=== PATIENT | female | born 1995 | race Caucasian/White ===

== ENCOUNTER 2016-09-11 12:45 | Emergency (ER) | payer OTHER ==
[~2016-09-11] VITALS: Ht 165.1 cm; Wt 68.0 kg
--- NOTE | 2016-09-11 12:52 | NUR ---
pt is in room #1b. dr Sol evaluated the pt.
[2016-09-11] MEDS ORDERED: IV NORMAL SALINE 1000 ML BAG IV ONE (13:45)
[2016-09-11] MEDS ORDERED: LORAZEPAM 2 MG/1 ML VIAL IV ONE (13:45)
[2016-09-11] MEDS ORDERED: LORAZEPAM 2 MG/1 ML VIAL ONE (14:01)
--- NOTE | 2016-09-11 15:41 | NUR ---
PT WAS D/C TO HOME. D/C INSTRUCTIONS GIVEN TO THE PT.
[2016-09-11 15:44] VITALS: BP 125/77
[2016-09-15 20:07] LABS: *GC NAA Negative (Negative); *TRIC.VAG. NAA Negative (Negative)
== END 2016-09-11 15:44 | disposition home or self-care (01) ==
LOC: ER 12:45
DX: F13.239 Sedative, hypnotic or anxiolytic dependence with withdrawal, unspecified (principal); F32.9 Major depressive disorder, single episode, unspecified; J45.909 Unspecified asthma, uncomplicated; F41.9 Anxiety disorder, unspecified; Z88.1 Allergy status to other antibiotic agents
CPT/HCPCS: 86592; 86803; 87491; 87806; 93005; 96361; 96374; 99285; A4663; J2060; J7030; 36415

== ENCOUNTER 2018-08-13 21:41 | Emergency (ER) | payer BC, OTHER ==
[~2018-08-13] VITALS: Ht 165.1 cm; Wt 74.8 kg
--- NOTE | 2018-08-13 22:00 | NUR ---
Pt walks into ER with c/o cough + nasal congestion x 1 day. No acute distress noted.
--- NOTE | 2018-08-13 22:13 | NUR ---
Patient discharged to home in stable conditon. Written and verbal after care instructions given. Patient verbalizes understanding of instructions.
[2018-08-13 22:16] VITALS: BP 110/71
== END 2018-08-13 22:17 | disposition home or self-care (01) ==
LOC: ER 21:41
DX: J02.9 Acute pharyngitis, unspecified (principal); J45.909 Unspecified asthma, uncomplicated; Z88.2 Allergy status to sulfonamides; Z88.8 Allergy status to other drugs, medicaments and biological substances
CPT/HCPCS: A4663

== ENCOUNTER 2018-09-13 14:09 | Emergency (ER) | payer BC, OTHER ==
[~2018-09-13] VITALS: Ht 162.6 cm; Wt 74.8 kg
[2018-09-13 14:42] LABS: *URINE HCG, QUAL NEGATIVE (NEGATIVE)
--- NOTE | 2018-09-13 15:20 | NUR ---
Patient is resting comfortably on gurney while using her personal electronic device, NAD.
[2018-09-13 15:37] LABS: BASOPHILS % (AUTO) 0.2 % (0.0-2.0); CREATININE 0.6 mg/dL (0.6-1.3); EOSINOPHILS % (AUTO) 0.3 % (0.0-7.0); HEMATOCRIT 39.2 % (31.2-41.9); HEMOGLOBIN 13.2 g/dL (10.9-14.3); LYMPHOCYTES # (AUTO) 0.9 K/uL (20.0-40.0); LYMPHOCYTES % (AUTO) 11.6 % (20.5-51.5); MEAN CORPUSCULAR HEMOGLOBIN 30.5 uug (24.7-32.8); MEAN CORPUSCULAR HGB CONC 34 g/dL (32.3-35.6); MEAN CORPUSCULAR VOLUME 90.6 fL (75.5-95.3); MONOCYTES # (AUTO) 0.4 K/uL (2.0-10.0); MONOCYTES % (AUTO) 4.8 % (0.0-11.0); NEUTROPHILS # (AUTO) 6.6 K/uL (1.8-8.9); NEUTROPHILS % (AUTO) 83.1 % (38.5-71.5); PLATELET COUNT (AUTO) 221 K/uL (179-408); POTASSIUM 4.1 mmol/L (3.5-5.1); RED BLOOD CELL COUNT(AUTO) 4.33 MIL/uL (3.63-4.92)
--- NOTE | 2018-09-13 16:29 | NUR ---
Patient discharged to home in stable conditon. Written and verbal after care instructions given to patient. Patient verbalizes understanding of instructions. Patient left ER with brisk steady gait.
== END 2018-09-13 16:31 | disposition home or self-care (01) ==
LOC: ER 14:09
DX: F41.9 Anxiety disorder, unspecified (principal); F32.9 Major depressive disorder, single episode, unspecified; J45.909 Unspecified asthma, uncomplicated; Z88.2 Allergy status to sulfonamides; Z88.8 Allergy status to other drugs, medicaments and biological substances
CPT/HCPCS: 36415; 71045; 84703; 85025; 93005; A4663